=== PATIENT | female | born 1980 | race Caucasian/White ===

== ENCOUNTER 2023-08-19 11:10 | Outpatient (CLI) | payer OTHER ==
[~2023-08-19 11:10] MED LIST: Colace 100MG PO; Motrin PO; OXYC1TAB9 PO
== END 2023-08-19 11:16 | disposition home or self-care (01) ==
LOC: MAMO-SONO 11:10
PROVIDERS: ATTEND General Practice
DX: Z12.31 Encounter for screening mammogram for malignant neoplasm of breast (principal); Z12.39 Encounter for other screening for malignant neoplasm of breast